=== PATIENT | female | born 1985 | race African-American/Black ===

== ENCOUNTER 2020-10-10 07:26 | Emergency (ER) | payer MEDICAID ==
[~2020-10-10] VITALS: Ht 175.3 cm; Wt 86.5 kg
[~2020-10-10 07:26] MED LIST: METH5TAB6 PO
[2020-10-10 07:32] VITALS: BP 126/69
== END 2020-10-10 09:01 | disposition home or self-care (01) ==
LOC: EDBD 07:26 → ED 08:30
DX: U07.1 COVID-19 (principal); B34.9 Viral infection, unspecified
CPT/HCPCS: 99283; U0003; U0005